=== PATIENT | female | born 1995 | race African-American/Black ===

== ENCOUNTER 2016-10-12 21:01 | Emergency (ER) | payer OTHER ==
[~2016-10-12] VITALS: Ht 172.7 cm; Wt 61.5 kg
[~2016-10-12 21:01] MED LIST: AMOXICILLI250 MG/5 M PO; AZITHROMYC200 MG/5 M PO; AZITHROMYCIN250 MG1 PO; CEFDINIR300 MG PO; IBUPROFEN100 MG/5 M PO; IBUPROFEN800 MG PO; IRON325 M1 PO; IRON325 MG PO; KEFLEX250 MG/5 M PO; MEDROL DOSEPAK4 MG PO; MOTRIN800 MG PO; ORAPRED15 MG/5 ML PO; PERCOCET 5/31 TABLET PO; PRENATA CHEWAB1 EACH PO; PROZAC20 MG PO; TYLENOL W/ CODE10 ML PO; VICODIN,LORT1 TABLET PO; ZITHROMAX200 MG/5 M PO; ZOFRAN ODT4 MG PO; ZOFRAN4 MG PO
[2016-10-12 22:08] LABS: HEMATOCRIT 44.7 % (36.0-46.0); MCH 23.8 PG (29.0-34.0); MCHC 30.2 G/DL (30.0-36.0); MCV 78.8 FL (83-99); MEAN PLAT.VOLUME 9.7 uM^3 (9.5-12.4); PLATELET COUNT 332 K/uL (156-360); RBC DIS.WIDTH-CV 15.4 % (11.8-14.6); RBC DIS.WIDTH-SD 43.8 % (39-53); RED BLOOD COUNT 5.67 M/uL (3.80-5.20); WHITE BLOOD COUNT 7.6 K/uL (4.1-10.2)
[2016-10-12 22:20] LABS: ANION GAP 10 MEQ/L (2-14); CHLORIDE 105 MEQ/L (99-109); POTASSIUM 3.7 MEQ/L (3.7-5.4); SAMPLE HEMOLYSIS CHECK 0; SAMPLE ICTERIC CHECK 0; SAMPLE LIPEMIA CHECK 0; SODIUM 139 MEQ/L (136-147); TOTAL BILIRUBIN 0.4 MG/DL (0.0-1.0)
[2016-10-12 22:22] LABS: BILIRUBIN NEGATIVE; BLOOD NEGATIVE; COLOR YELLOW ((YELLOW)); GLUCOSE (STRIP) NEGATIVE; KETONES NEGATIVE; LEUKOCYTES NEGATIVE; NITRITE NEGATIVE; PROTEIN (STRIP) NEGATIVE; SPECIFIC GRAVITY 1.035 (1.000-1.030); UROBILINOGEN 0.2 MG/DL (0.2-1.0)
[2016-10-12 22:23] LABS: ADD MIUA? NO
[2016-10-12 22:26] LABS: ALKALINE PHOSPHATASE 66 IU/L (3-129); GFR ESTIMATE (CALCULATED) > 59 mL/min/; GLUCOSE 80 mg/dL (70-99); LIPASE 32 U/L (1.0-51.0); UREA NITROGEN (BUN) 10 mg/dL (9-23)
[2016-10-12 23:04] LABS: QUANTITATIVE HCG 6859.1 MIU/ML
[2016-10-12] MEDS ORDERED: PROMETHAZINE HC25 M1 PO (23:33)
[2016-10-12 23:43] VITALS: BP 121/82
== END 2016-10-12 23:44 | disposition home or self-care (01) ==
LOC: RME 21:01 → EME 21:01 → RME 23:44
PROVIDERS: Nurse Practitioner Family
DX: O21.1 Hyperemesis gravidarum with metabolic disturbance (principal); E86.0 Dehydration; Z3A.01 Less than 8 weeks gestation of pregnancy; Z87.891 Personal history of nicotine dependence; Z88.0 Allergy status to penicillin
CPT/HCPCS: 80053; 81003; 83690; 84702; 85027; 99281; 99284; Q0169